=== PATIENT | female | born 1950 | race Caucasian/White ===

== ENCOUNTER 2017-02-17 15:19 | Inpatient (IN) | payer MEDICAID, OTHER ==
[~2017-02-17] VITALS: Ht 172.7 cm; Wt 67.8 kg
[~2017-02-17 15:19] MED LIST: CITA20TA9 PO
[2017-02-17] MEDS ORDERED: SODIUM CHLORIDE 0.9% 1,000 ML IV ONE (16:00)
[2017-02-17 19:34] LABS: HEMATOCRIT 36.9 % (36-46); MEAN CORPUSCULAR VOLUME 97 fL (80-100); MONOCYTES # (AUTO) 0.5 K/uL (0.1-1.0)
[2017-02-17 19:42] LABS: BASOPHILS % (AUTO) 0.7 % (0.0-2.0); EOSINOPHILS % (AUTO) 2.6 % (1.0-6.0); HEMOGLOBIN 12.6 g/dL (12.0-16.0); LYMPHOCYTES # (AUTO) 2.5 K/uL (1.0-4.8); LYMPHOCYTES % (AUTO) 38.6 % (22.0-44.0); MEAN CORPUSCULAR HEMOGLOBIN 33.1 pg (26.0-34.0); MEAN CORPUSCULAR HGB CONC 34.2 G/dL (31.0-37.0); MONOCYTES % (AUTO) 7.3 % (2.0-9.0); NEUTROPHILS # (AUTO) 3.3 K/uL (1.8-7.7); NEUTROPHILS % (AUTO) 50.8 % (40.0-70.0); RED BLOOD CELL COUNT(AUTO) 3.81 MIL/uL (4.00-5.20); RED CELL DISTRIBUTION WIDTH 15.5 % (11.5-14.5); WHITE BLOOD COUNT (AUTO) 6.5 K/uL (4.5-11.0)
[2017-02-17 20:01] LABS: PLATELET COUNT (AUTO) 190 K/uL (150-450)
[2017-02-17 20:11] LABS: ANION GAP 9 mmol/L (8-16); CALCIUM, TOTAL 7.5 mg/dL (8.8-10.5); CARBON DIOXIDE 25 mmol/L (22-29); CHLORIDE 107 mmol/L (98-107); CREATININE 0.64 mg/dL (0.60-1.30); GLOMERULAR FILTR. RATE CALC > 60 mL/min (>60); POTASSIUM 3.5 mmol/L (3.5-5.1); SODIUM SERUM 141 mmol/L (136-145); UREA NITROGEN, BLOOD 15 mg/dL (7-18)
[2017-02-17] MEDS ORDERED: PROMETHAZINE HCL 25 MG TABLET PO PRN (20:15)
[2017-02-17] MEDS ORDERED: HydrOXYzine PAMOATE 50 MG CAPSULE PO PRN (20:15)
[2017-02-17] MEDS ORDERED: CYANOCOBALAMIN 1,000 MCG/ML VIAL IM ONE (20:15)
[2017-02-17] MEDS ORDERED: MAG HYDROX/AL HYDROX/SIMETH ES 30 ML SUSPENSION UDCUP PO PRN (20:15)
[2017-02-17] MEDS ORDERED: LOPERAMIDE HCL 2 MG CAPSULE PO PRN ×2 (20:15)
[2017-02-17] MEDS ORDERED: CefTRIAXone 1 GM/DEXTROSE 50 ML IV ONE (20:15)
[2017-02-17] MEDS ORDERED: MAGNESIUM HYDROXIDE SUSPENSION 30 ML UDCUP PO PRN (20:15)
[2017-02-17] MEDS ORDERED: LORazepam 2 MG TABLET PO PRN (20:15)
[2017-02-17] MEDS ORDERED: GuaiFENesin/D-METHORPHAN [SUGAR-FREE] 200-20MG/10 ML SYRUP UDCUP PO PRN (20:15)
[2017-02-17 20:17] LABS: ALANINE AMINOTRANSFERASE 24 U/L (12-78); ALBUMIN 2.8 g/dL (3.4-5.0); ASPARTATE AMINOTRANSFERASE 28 U/L (15-37); BILIRUBIN,TOTAL 0.2 mg/dL (0.1-1.0); TOTAL PROTEIN, SERUM 5.6 g/dL (6.4-8.2)
[2017-02-17] MEDS: THIAMINE HCL 100 MG TABLET PO SCH (21:50)
[2017-02-18] VITALS (9 sets, daily range): BP systolic 130–147; BP diastolic 73–88
[2017-02-18] MEDS ORDERED: PNEUMOCOCCAL VACCINE POLYVALENT 0.5 ML VIAL [PPSV23] IM ONE (01:30)
[2017-02-18 01:50] LABS: APPEARANCE,URINE CLEAR (CLEAR); GLUCOSE, URINE (UA) NEGATIVE (NEGATIVE); KETONES,URINE NEGATIVE (NEGATIVE); LEUKOCYTE ESTERASE ,URINE SMALL (NEGATIVE); OCCULT BLOOD,URINE TRACE (NEGATIVE); PROTEIN,URINE NEGATIVE (NEGATIVE)
[2017-02-18 01:51] LABS: ADD UA MICROSCOPIC YES
[2017-02-18 02:00] LABS: TRANSITIONAL EPI CELLS,URINE Few /LPF (None Seen)
[2017-02-18] MEDS: ACETAMINOPHEN 325 MG TABLET PO PRN ×2 (04:42→08:19)
[2017-02-18] MEDS ORDERED: CloNIDine HCL 0.1 MG TABLET PO PRN (06:45)
[2017-02-18] MEDS ORDERED: BACITRACIN 28.4 GM OINTMENT TP PRN (06:45)
[2017-02-18] MEDS ORDERED: ALBUTEROL SULFATE HFA 90 MCG/PUFF 8 GM INHALER IH PRN (06:45)
[2017-02-18] MEDS ORDERED: PETROLATUM,WHITE 71 GM JELLY TP PRN (06:45)
[2017-02-18] MEDS ORDERED: ONDANSETRON HCL 4 MG TABLET PO PRN (06:45)
[2017-02-18] MEDS ORDERED: FLUCONAZOLE 150 MG TABLET PO ONE (07:00)
[2017-02-18] MEDS ORDERED: BENZOCAINE/MENTHOL LOZENGE [8 LOZENGES/PACKET] MM PRN (07:00)
[2017-02-18] MEDS ORDERED: LORazepam 2 MG TABLET PO PRN (07:00)
[2017-02-18 07:33] LABS: CHOL/HDL RATIO 3.2 (3.9-5.7)
[2017-02-18] MEDS: NITROFURANTOIN/NITROFURAN MAC 100 MG CAPSULE [MACROBID] PO SCH ×2 (08:07→17:20)
[2017-02-18] MEDS: THIAMINE HCL 100 MG TABLET PO SCH ×2 (08:09→17:20)
[2017-02-18] MEDS: FOLIC ACID 1 MG TABLET PO SCH (08:09)
[2017-02-18] MEDS: LORazepam 2 MG TABLET PO SCH ×4 (08:09→21:57)
[2017-02-18] MEDS: MULTIVITAMINS WITH MINERALS, THERAPEUTIC TABLET PO SCH (08:09)
[2017-02-18] MEDS: RisperiDONE 0.5 MG TABLET PO SCH (17:20)
[2017-02-19 04:45] VITALS: BP 142/85
[2017-02-19 04:47] VITALS: BP 142/85
[2017-02-19] MEDS: ACETAMINOPHEN 325 MG TABLET PO PRN (04:53)
[2017-02-19] MEDS: LORazepam 2 MG TABLET PO SCH ×4 (08:41→20:21)
[2017-02-19] MEDS: FOLIC ACID 1 MG TABLET PO SCH (08:41)
[2017-02-19] MEDS: THIAMINE HCL 100 MG TABLET PO SCH ×2 (08:41→16:34)
[2017-02-19] MEDS: RisperiDONE 0.5 MG TABLET PO SCH ×2 (08:41→16:34)
[2017-02-19] MEDS: MULTIVITAMINS WITH MINERALS, THERAPEUTIC TABLET PO SCH (08:41)
[2017-02-19] MEDS: NITROFURANTOIN/NITROFURAN MAC 100 MG CAPSULE [MACROBID] PO SCH ×2 (08:42→16:34)
[2017-02-19 13:28] VITALS: BP 117/60
[2017-02-19 20:46] VITALS: BP 121/67
[2017-02-20 00:13] VITALS: BP 133/77
[2017-02-20] MEDS: ACETAMINOPHEN 325 MG TABLET PO PRN (00:16)
[2017-02-20] MEDS: LORazepam 2 MG TABLET PO PRN (00:17)
[2017-02-20 01:01] VITALS: BP 137/99
[2017-02-20] MEDS ORDERED: LORazepam 1 MG TABLET PO PRN (07:00)
[2017-02-20] MEDS: FOLIC ACID 1 MG TABLET PO SCH (08:07)
[2017-02-20] MEDS: RisperiDONE 0.5 MG TABLET PO SCH ×2 (08:07→16:41)
[2017-02-20] MEDS: THIAMINE HCL 100 MG TABLET PO SCH ×2 (08:07→16:41)
[2017-02-20] MEDS: NITROFURANTOIN/NITROFURAN MAC 100 MG CAPSULE [MACROBID] PO SCH ×2 (08:07→16:41)
[2017-02-20] MEDS: MULTIVITAMINS WITH MINERALS, THERAPEUTIC TABLET PO SCH (08:08)
[2017-02-20] MEDS: LORazepam 1 MG TABLET PO SCH ×4 (08:08→20:33)
[2017-02-20 09:14] VITALS: BP 120/79
[2017-02-20 09:18] VITALS: BP 120/79
[2017-02-20 19:03] VITALS: BP 125/83
[2017-02-20] MEDS: NICOTINE 14 MG/24 HOUR PATCH TD SCH (20:33)
[2017-02-21 05:41] VITALS: BP 111/68
[2017-02-21 05:43] VITALS: BP 111/68
[2017-02-21 05:55] VITALS: BP 111/68
[2017-02-21] MEDS: ACETAMINOPHEN 325 MG TABLET PO PRN (05:59)
[2017-02-21 08:21] VITALS: BP 112/81
[2017-02-21 08:22] VITALS: BP 112/81
[2017-02-21] MEDS: NICOTINE 14 MG/24 HOUR PATCH TD SCH (08:52)
[2017-02-21] MEDS: MULTIVITAMINS WITH MINERALS, THERAPEUTIC TABLET PO SCH (08:52)
[2017-02-21] MEDS: LORazepam 1 MG TABLET PO PRN ×3 (08:52→20:08)
[2017-02-21] MEDS: NITROFURANTOIN/NITROFURAN MAC 100 MG CAPSULE [MACROBID] PO SCH ×2 (08:52→16:46)
[2017-02-21] MEDS: THIAMINE HCL 100 MG TABLET PO SCH ×2 (08:53→16:46)
[2017-02-21] MEDS: FOLIC ACID 1 MG TABLET PO SCH (08:53)
[2017-02-21] MEDS: RisperiDONE 0.5 MG TABLET PO SCH (08:53)
[2017-02-21] MEDS ORDERED: OMEGA-3/DHA/EPA/FISH OIL 500 MG CAPSULE PO SCH (09:00)
[2017-02-21] MEDS: RisperiDONE 1 MG TABLET PO SCH (16:46)
[2017-02-21 20:13] VITALS: BP 119/96
[2017-02-22] MEDS: LORazepam 2 MG TABLET PO PRN ×2 (08:28→16:40)
[2017-02-22] MEDS: MULTIVITAMINS WITH MINERALS, THERAPEUTIC TABLET PO SCH (08:28)
[2017-02-22] MEDS: OMEGA-3/DHA/EPA/FISH OIL 500 MG CAPSULE PO SCH (08:28)
[2017-02-22] MEDS: RisperiDONE 1 MG TABLET PO SCH ×2 (08:29→16:40)
[2017-02-22] MEDS: THIAMINE HCL 100 MG TABLET PO SCH ×2 (08:29→16:40)
[2017-02-22] MEDS: FOLIC ACID 1 MG TABLET PO SCH (08:29)
[2017-02-22] MEDS: NITROFURANTOIN/NITROFURAN MAC 100 MG CAPSULE [MACROBID] PO SCH ×2 (08:29→16:40)
[2017-02-22] MEDS: NICOTINE 14 MG/24 HOUR PATCH TD SCH (08:30)
[2017-02-22] MEDS: DICLOFENAC SODIUM 1% 100 GM GEL [2GM] TP SCH (16:41)
[2017-02-23] MEDS: LORazepam 2 MG TABLET PO PRN ×2 (06:50→17:21)
[2017-02-23 08:09] VITALS: BP 100/71
[2017-02-23] MEDS: NICOTINE 14 MG/24 HOUR PATCH TD SCH (08:32)
[2017-02-23] MEDS: FOLIC ACID 1 MG TABLET PO SCH (08:32)
[2017-02-23] MEDS: OMEGA-3/DHA/EPA/FISH OIL 500 MG CAPSULE PO SCH (08:32)
[2017-02-23] MEDS: MULTIVITAMINS WITH MINERALS, THERAPEUTIC TABLET PO SCH (08:33)
[2017-02-23] MEDS: RisperiDONE 1 MG TABLET PO SCH ×2 (08:33→17:17)
[2017-02-23] MEDS: THIAMINE HCL 100 MG TABLET PO SCH ×2 (08:33→17:17)
[2017-02-23] MEDS: DICLOFENAC SODIUM 1% 100 GM GEL [2GM] TP SCH ×2 (08:33→17:17)
[2017-02-23 20:20] VITALS: BP 102/80
[2017-02-24] MEDS: RisperiDONE 1 MG TABLET PO SCH ×2 (08:04→16:59)
[2017-02-24] MEDS: THIAMINE HCL 100 MG TABLET PO SCH ×2 (08:04→16:58)
[2017-02-24] MEDS: LORazepam 2 MG TABLET PO PRN ×2 (08:04→16:01)
[2017-02-24] MEDS: HALOPERIDOL 5 MG TABLET PO PRN ×2 (08:04→16:01)
[2017-02-24] MEDS: FOLIC ACID 1 MG TABLET PO SCH (08:04)
[2017-02-24] MEDS: OMEGA-3/DHA/EPA/FISH OIL 500 MG CAPSULE PO SCH (08:04)
[2017-02-24] MEDS: MULTIVITAMINS WITH MINERALS, THERAPEUTIC TABLET PO SCH (08:05)
[2017-02-24] MEDS: DICLOFENAC SODIUM 1% 100 GM GEL [2GM] TP SCH ×2 (08:06→16:59)
[2017-02-24] MEDS: NICOTINE 14 MG/24 HOUR PATCH TD SCH (08:16)
[2017-02-24 08:51] VITALS: BP 122/90
[2017-02-24 16:30] VITALS: BP 122/78
[2017-02-25 08:00] VITALS: BP 122/80
[2017-02-25] MEDS: MULTIVITAMINS WITH MINERALS, THERAPEUTIC TABLET PO SCH (08:07)
[2017-02-25] MEDS: NICOTINE 14 MG/24 HOUR PATCH TD SCH (08:07)
[2017-02-25] MEDS: DICLOFENAC SODIUM 1% 100 GM GEL [2GM] TP SCH (08:07)
[2017-02-25] MEDS: THIAMINE HCL 100 MG TABLET PO SCH ×2 (08:07→17:39)
[2017-02-25] MEDS: OMEGA-3/DHA/EPA/FISH OIL 500 MG CAPSULE PO SCH (08:07)
[2017-02-25] MEDS: RisperiDONE 1 MG TABLET PO SCH ×2 (08:07→17:39)
[2017-02-25] MEDS: FOLIC ACID 1 MG TABLET PO SCH (08:07)
[2017-02-25] MEDS: ACETAMINOPHEN 325 MG TABLET PO PRN (12:35)
[2017-02-25] MEDS: LIDOCAINE HCL 5% TRANSDERMAL PATCH TD SCH (13:30)
[2017-02-25] MEDS: LORazepam 2 MG TABLET PO PRN (19:45)
[2017-02-25] MEDS: -LIDODERM PATCH NOTE- MISC SCH ×2 (21:00)
[2017-02-26 07:15] VITALS: BP 126/74
[2017-02-26] MEDS: ACETAMINOPHEN 325 MG TABLET PO PRN ×2 (07:18→15:04)
[2017-02-26 08:06] VITALS: BP 126/74
[2017-02-26] MEDS: OMEGA-3/DHA/EPA/FISH OIL 500 MG CAPSULE PO SCH (09:22)
[2017-02-26] MEDS: RisperiDONE 1 MG TABLET PO SCH ×2 (09:26→16:07)
[2017-02-26] MEDS: THIAMINE HCL 100 MG TABLET PO SCH ×2 (09:26→16:07)
[2017-02-26] MEDS: MULTIVITAMINS WITH MINERALS, THERAPEUTIC TABLET PO SCH (09:26)
[2017-02-26] MEDS: NICOTINE 14 MG/24 HOUR PATCH TD SCH (09:26)
[2017-02-26] MEDS: FOLIC ACID 1 MG TABLET PO SCH (09:26)
[2017-02-26] MEDS: LIDOCAINE HCL 5% TRANSDERMAL PATCH TD SCH (09:33)
[2017-02-26 16:04] VITALS: BP 124/66
[2017-02-26] MEDS: LORazepam 2 MG TABLET PO PRN (20:13)
[2017-02-26] MEDS: -LIDODERM PATCH NOTE- MISC SCH ×2 (20:13)
[2017-02-27] MEDS: ZOLPIDEM TARTRATE 10 MG TABLET PO PRN (00:47)
[2017-02-27 00:49] VITALS: BP 120/74
[2017-02-27] MEDS: ACETAMINOPHEN 325 MG TABLET PO PRN ×4 (00:49→18:58)
[2017-02-27 02:56] LABS: APPEARANCE,URINE CLEAR (CLEAR); GLUCOSE, URINE (UA) NEGATIVE (NEGATIVE); KETONES,URINE NEGATIVE (NEGATIVE); LEUKOCYTE ESTERASE ,URINE NEGATIVE (NEGATIVE); OCCULT BLOOD,URINE NEGATIVE (NEGATIVE); PH,URINE 6.5 (5.0-8.0); PROTEIN,URINE NEGATIVE (NEGATIVE)
[2017-02-27 03:25] LABS: RBC,URINE None Seen /HPF (0-2); SQUAMOUS EPITHELIAL CELL,UR Rare /LPF (None Seen); WBC,URINE 0-2 /HPF (0-5)
[2017-02-27 08:00] VITALS: BP 117/78
[2017-02-27] MEDS: MULTIVITAMINS WITH MINERALS, THERAPEUTIC TABLET PO SCH (08:20)
[2017-02-27] MEDS: OMEGA-3/DHA/EPA/FISH OIL 500 MG CAPSULE PO SCH (08:20)
[2017-02-27] MEDS: RisperiDONE 1 MG TABLET PO SCH ×2 (08:20→16:52)
[2017-02-27] MEDS: FOLIC ACID 1 MG TABLET PO SCH (08:20)
[2017-02-27] MEDS: NICOTINE 14 MG/24 HOUR PATCH TD SCH (08:24)
[2017-02-27] MEDS: LIDOCAINE HCL 5% TRANSDERMAL PATCH TD SCH (08:40)
[2017-02-27 18:47] VITALS: BP 122/77
[2017-02-27 19:00] VITALS: BP 118/74
[2017-02-27] MEDS: LORazepam 2 MG TABLET PO PRN (20:35)
[2017-02-27] MEDS: -LIDODERM PATCH NOTE- MISC SCH ×2 (20:36)
[2017-02-28 05:26] VITALS: BP 83/56
[2017-02-28] MEDS: ACETAMINOPHEN 325 MG TABLET PO PRN ×2 (05:26→11:54)
[2017-02-28 08:30] VITALS: BP 135/80
[2017-02-28] MEDS: OMEGA-3/DHA/EPA/FISH OIL 500 MG CAPSULE PO SCH (09:21)
[2017-02-28] MEDS: MULTIVITAMINS WITH MINERALS, THERAPEUTIC TABLET PO SCH (09:21)
[2017-02-28] MEDS: RisperiDONE 1 MG TABLET PO SCH ×2 (09:21→16:20)
[2017-02-28] MEDS: NICOTINE 14 MG/24 HOUR PATCH TD SCH (09:25)
[2017-02-28] MEDS: LIDOCAINE HCL 5% TRANSDERMAL PATCH TD SCH (09:47)
[2017-02-28 17:20] VITALS: BP 108/77
[2017-02-28] MEDS: LORazepam 2 MG TABLET PO PRN (20:09)
[2017-02-28] MEDS: -LIDODERM PATCH NOTE- MISC SCH ×2 (20:12)
[2017-02-28] MEDS: ZOLPIDEM TARTRATE 10 MG TABLET PO PRN (21:22)
[2017-03-01] MEDS: ACETAMINOPHEN 325 MG TABLET PO PRN ×3 (02:29→14:42)
[2017-03-01 02:30] VITALS: BP 121/71
[2017-03-01] MEDS: MULTIVITAMINS WITH MINERALS, THERAPEUTIC TABLET PO SCH (08:52)
[2017-03-01] MEDS: RisperiDONE 1 MG TABLET PO SCH ×3 (08:52→16:51)
[2017-03-01] MEDS: OMEGA-3/DHA/EPA/FISH OIL 500 MG CAPSULE PO SCH (08:52)
[2017-03-01] MEDS: NICOTINE 14 MG/24 HOUR PATCH TD SCH (08:53)
[2017-03-01] MEDS: LIDOCAINE HCL 5% TRANSDERMAL PATCH TD SCH (08:53)
[2017-03-01 09:02] VITALS: BP 111/77
[2017-03-01 10:02] VITALS: BP 128/74
[2017-03-01 19:16] VITALS: BP 118/81
[2017-03-01] MEDS: -LIDODERM PATCH NOTE- MISC SCH ×2 (20:35)
[2017-03-01 20:44] VITALS: BP 125/64
[2017-03-01] MEDS: LORazepam 2 MG TABLET PO PRN (20:46)
[2017-03-02] MEDS: OMEGA-3/DHA/EPA/FISH OIL 500 MG CAPSULE PO SCH (08:31)
[2017-03-02] MEDS: RisperiDONE 1 MG TABLET PO SCH (08:31)
[2017-03-02] MEDS: MULTIVITAMINS WITH MINERALS, THERAPEUTIC TABLET PO SCH (08:31)
[2017-03-02] MEDS: NICOTINE 14 MG/24 HOUR PATCH TD SCH (08:45)
[2017-03-02] MEDS: LIDOCAINE HCL 5% TRANSDERMAL PATCH TD SCH ×2 (08:45→09:00)
[2017-03-02 08:46] VITALS: BP 110/51
[2017-03-02] MEDS: ACETAMINOPHEN 325 MG TABLET PO PRN ×2 (08:46→13:10)
[2017-03-02] MEDS ORDERED: RISP1 PO (09:53)
[2017-03-02] MEDS ORDERED: FISH1CAP27 PO (09:53)
== END 2017-03-02 14:12 | disposition home or self-care (01) | DRG 750 ==
LOC: EMS 15:21 → 3EC 23:51 → 3EI 02-26 16:45
PROVIDERS: ADMIT Psychiatry & Neurology Psychiatry; ATTEND Psychiatry & Neurology Psychiatry
DX: F25.0 Schizoaffective disorder, bipolar type (principal); E46 Unspecified protein-calorie malnutrition; R45.851 Suicidal ideations; F22 Delusional disorders; Z59.0 Homelessness; E78.5 Hyperlipidemia, unspecified; F10.239 Alcohol dependence with withdrawal, unspecified; F41.9 Anxiety disorder, unspecified; G89.29 Other chronic pain; I10 Essential (primary) hypertension; N39.0 Urinary tract infection, site not specified; Z87.440 Personal history of urinary (tract) infections; Z87.891 Personal history of nicotine dependence; R26.9 Unspecified abnormalities of gait and mobility; R19.7 Diarrhea, unspecified; Z28.21 Immunization not carried out because of patient refusal
CPT/HCPCS: 72100; 87086; 93005; 96361; 96365; 96372; 99285; 99406; G0480; J0696; J3420; J7030